=== PATIENT | male | born 1980 | race Caucasian/White ===

== ENCOUNTER 2021-06-26 12:36 | Emergency (ER) | payer OTHER ==
[~2021-06-26] VITALS: Ht 193 cm; Wt 122.7 kg
[2021-06-26 13:09] VITALS: BP 162/103; PULSE 85; TEMP 98.4
== END 2021-06-26 14:38 | disposition home or self-care (01) ==
LOC: COL.ER 12:36
DX: R13.10 Dysphagia, unspecified (principal); I10 Essential (primary) hypertension

== ENCOUNTER 2024-04-04 11:58 | Emergency (ER) | payer OTHER ==
[~2024-04-04] VITALS: Ht 193 cm; Wt 122.7 kg
[2024-04-04 12:06] VITALS: TEMP 98.2
[2024-04-04] MEDS ORDERED: NS 1,000 ML IV ONE ×2 (12:30→12:45)
[2024-04-04 12:38] LABS: BASO # 0.1 K/mm3 (0.0-0.2); BASO % 0.4 % (0.0-2.0); EOS % 0.3 % (0.0-4.0); GRAN # 7.9 K/mm3 (1.4-6.5); GRAN % 62.5 % (42.2-75.2); HEMOGLOBIN 17.9 g/dl (13.5-18.0); LYMPH # 3.9 K/mm3 (1.2-3.4); LYMPH % 30.5 % (20.0-51.0); MEAN CELL VOLUME 88 fl (80.0-100.0); MEAN CORPUSCULAR HEMOGLOBIN 29 pg (27-31); MEAN CORPUSCULAR HGB CONC 33 g/dl (33.0-37.0); MEAN PLATELET VOLUME 11.3 fl (7.4-10.4); MONO # 0.8 K/mm3 (0.1-0.6); MONO % 6.1 % (1.7-9.3); PLATELET COUNT 267 K/mm3 (130-400); REDCELL DISTRIBUTION WIDTH-CV 13.8 % (11.5-14.5)
[2024-04-04 12:41] LABS: HEMATOCRIT 53.7 % (42.0-52.0)
[2024-04-04 12:55] LABS: BILIRUBIN,TOTAL 0.8 mg/dL (0.2-1.2); CALCIUM 10.4 mg/dL (8.4-10.2); CREATININE, serum 1.33 mg/dL (0.72-1.25); POTASSIUM 4.3 mEq/L (3.5-4.5); TOTAL PROTEIN 8.3 g/dl (6.2-8.1)
[2024-04-04 13:01] LABS: TROPONIN-I 0.01 ng/mL (0.00-0.033)
[2024-04-04 13:50] LABS: THYROID STIMULATING HORMONE 0.375 uIU/mL (0.350-4.940)
[2024-04-04] MEDS ORDERED: LORazepam 2 MG/ML 1 ML VIAL IV ONE (14:15)
[2024-04-04] MEDS ORDERED: NS 100 ML IV SCH (14:39)
[2024-04-04] MEDS ORDERED: Iohexol 300 - 100 ML VIAL IV ONE (14:39)
[2024-04-04 16:32] VITALS: BP 125/96; PULSE 83
== END 2024-04-04 16:36 | disposition home or self-care (01) ==
LOC: COL.ER 11:58
PROVIDERS: Family Medicine
DX: R00.2 Palpitations (principal); K44.9 Diaphragmatic hernia without obstruction or gangrene
CPT/HCPCS: J7030; Q9967